=== PATIENT | male | born 1950 ===

== ENCOUNTER 2024-10-05 13:24 | Outpatient (CLI) | payer MEDICARE, SELFPAY ==
--- NOTE | ~2024-10-05 | MR_ITS ---
MRI of the lumbar spine Clinical History: Radiculopathy Technique: Axial T2-weighted images, and sagittal T1-weighted, T2-weighted, and T2 fat-sat images wer e acquired. Findings: There is 8mm anterolisthesis of L4 over L5. No acute fracture seen. There is mild chronic c ompression deformity of T12. No suspicious bone marrow signal abnormality seen. At L1-L2, there is moderate facet arthropathy without disc bulge or herniation. No spinal canal steno sis or definite neural foraminal narrowing. At L2-L3, there is moderate degenerative change. There is diffuse disc bulge with moderate facet arth ropathy. There is moderate central canal stenosis. There is moderate to advanced right neural foramin al narrowing, and mild left neural foraminal narrowing. L3-L4, there is moderate to advanced degenerative disc change with diffuse disc bulge and severe face t arthropathy. There is moderate to severe spinal canal stenosis/thecal sac compression. There is sev ere bilateral neural foraminal narrowing. At L4-L5, there is severe degenerative disc change with severe facet arthropathy in severe spinal can al stenosis/thecal sac compression. There is severe bilateral neural foraminal comprise. At L5-S1, there is no definite disc bulge or herniation. No canal stenosis or neural foraminal narrow ing evident. Paravertebral soft tissues are unremarkable. Impression: 8 mm anterolisthesis of L4 over L5. Severe degenerative spondylosis with severe canal stenosis at L4-L5, as detailed above. Additional severe degenerative spondylosis at L2-L3 and L3-L4, as detailed above. Reviewed, dictated and finalized at [facility]. Impression: 8 mm anterolisthesis of L4 over L5. Severe degenerative spondylosis with severe canal stenosis at L4-L5, as detaile d above. Additional severe degenerative spondylosis at L2-L3 and L3-L4, as detailed marsha meier
--- NOTE | ~2024-10-05 | XR_ITS ---
3 VIEWS LUMBAR SPINE Ordering provider: Jailyn Quintanilla, [place] History: . Spondylolisthesis . Comparison: None. FINDINGS: VERTEBRAL BODIES:Anterolisthesis at the level of L4-L5. Highly suggestive spondylolysis at the level of L4-L5. Loss of height is seen in T12 and T10 of about 50% most likely chronic. MRI evaluation advi sed. Degenerative changes of the spine. Otherwise, No visible acute fracture or subluxation. DISK SPACES: Narrowing of the disc L2-L3, L3-4, L4-L5 and L5-S1. Multilevel facet joint disease. SOFT TISSUES: Atherosclerotic changes of the aorta. IMPRESSION: Loss of height in T12 and T10 most likely chronic. MRI evaluation advised. spondylolisthesis with highly suggestive spondylolysis at the level of L5-S1. Multilevel degenerative disc disease. Reviewed, dictated and finalized at [facility].
== END 2024-10-05 13:25 | disposition home or self-care (01) ==
LOC: MICIMG 13:26
PROVIDERS: PCP Physician Assistant; Visit Provider Physician Assistant
DX: M48.062 Spinal stenosis, lumbar region with neurogenic claudication (principal); M51.369 Other intervertebral disc degeneration, lumbar region without mention of lumbar back pain or lower extremity pain; M47.26 Other spondylosis with radiculopathy, lumbar region
CPT/HCPCS: 72110; 72148